=== PATIENT | female | born 1985 | race Caucasian/White ===

== ENCOUNTER 2020-11-12 06:33 | Day surgery (SDC) | payer OTHER ==
[2020-11-12] MEDS ORDERED: KEFZOL 1 GM/50 ML PREMIX** 1 GM/50 ML IVPB IV SCH (06:45)
[2020-11-12] MEDS ORDERED: Lactated Ringers 1,000 ML IV SCH (07:00)
[2020-11-12] MEDS ORDERED: KEFZOL 1 GM/50 ML PREMIX** 1 GM/50 ML IVPB IV ONE (07:17)
[2020-11-12] MEDS ORDERED: Lactated Ringers 1,000 ML IV ONE (07:18)
[2020-11-12] MEDS ORDERED: Xylocaine-Mpf 2% 5 Ml Vial ONE (08:26)
[2020-11-12] MEDS ORDERED: Zofran 4 MG/2 ML VIAL ONE (08:26)
[2020-11-12] MEDS ORDERED: Decadron 4 MG INJ ONE (08:26)
[2020-11-12] MEDS ORDERED: DIPRIVAN 200 MG/20 ML IV ONE (08:26)
[2020-11-12] MEDS ORDERED: Versed 2 MG/2 ML Injection ONE (08:27)
[2020-11-12] MEDS ORDERED: SUBLIMAZE 100 MCG/2 ML ONE ×2 (08:27→09:19)
[2020-11-12 10:29] VITALS: BP 106/63; PULSE 69; O2SAT 99
--- NOTE | 2020-11-12 12:30 | OP ---
SURGERY DATE/TIME: 11/12/2020 0826 PREOPERATIVE DIAGNOSIS: Menorrhagia and post-coital bleeding. POSTOPERATIVE DIAGNOSIS: Menorrhagia and post-coital bleeding. PROCEDURE: Hysteroscopy, D&C with NovaSure ablation. SURGEON: Corby Pabon D.O. THERAPEUTIC ACTIVITIES SERVICES WORKER: Kenrick Izaguirre supply technician. ANESTHESIA: General. ESTIMATED BLOOD LOSS: Minimal. COMPLICATIONS: None. INDICATIONS: The risks, benefits, indications and alternatives of the procedure were reviewed with the patient prior to the procedure. The patient understood the risk of infection, bleeding, bowel injury, bladder injury, ureteral injury, uterine perforation, pelvic infection, thromboembolic disorder associated with this procedure however desires to have this surgery as a possible means to alleviate her current medical condition. DESCRIPTION OF PROCEDURE AND FINDINGS: At this point the patient is taken to the operating room, given general sedation, placed in dorsal lithotomy position, prepped and draped in the usual sterile fashion. A weighted speculum is then placed in the patient's vagina and the anterior lip of the cervix is grasped with a single tooth tenaculum. Endocervical dilators were placed through the endocervical canal as a means to dilate the cervix and the uterus was sounded to approximately 9 cm. From this point a 5 mm hysteroscope was then placed through the endocervical canal where visualization of the endometrial lining appeared to be within normal limits with no gross abnormalities. From this point the hysteroscope was removed and the curette was then placed into the fundus of the uterus and curettage is performed in all quadrants of the uterus retrieving a moderate amount of tissue. From this point the NovaSure was then taken and the length was measured at 6 cm where it was placed into the fundal region retracted approximately 1 cm and was engaged and at this point the width was 3 cm and the NovaSure instrument was turned on for approximately 54 seconds of ablative time. After the ablative time the instrument was disengaged and removed from the uterine cavity without complication. From this point all instruments were removed from the patient's vaginal region. The patient was then taken out of dorsal lithotomy position and was taken out anesthesia and was then taken to the recovery room in stable condition. All instruments and laps were accounted for x2.
== END 2020-11-12 10:44 | disposition home or self-care (01) ==
LOC: SDC 06:33
PROVIDERS: ATTEND Obstetrics & Gynecology
DX: N92.0 Excessive and frequent menstruation with regular cycle (principal); N93.0 Postcoital and contact bleeding
CPT/HCPCS: 84703; J0690; J1100; J2250; J2405; J2704; J3010

== ENCOUNTER 2021-10-03 12:17 | Emergency (ER) | payer BC ==
[2021-10-03 12:42] LABS: Absolute Neutrophil Ct (ANC) 3.14 (1.4-6.9); Basophil (Absolute #) 0.01 (0-0.4); Eosinophil % 0.8 % (0.00-5.0); Eosinophil (Absolute #) 0.04 (0-0.5); Hematocrit 39.3 % (35-47); Hemoglobin 13.3 gm/dl (12.0-16.0); Lymphocyte (Absolute #) 1.63 (1.0-4.6); Lymphocytes % 31.5 % (24.0-44.0); Mean Cell Volume 94.5 fl (78-100); Mean Corpuscular Hgb Concent. 33.8 g/dl (32-36); Mean Platelet Volume 10.3 fl (7.5-11.0); Monocyte (Absolute #) 0.36 (0.0-1.3); Monocytes % 6.9 % (0.0-12.0); Neutrophil % 60.6 % (36.0-66.0); Platelet Count 173 K/mm3 (150-450); Red Blood Count 4.16 M/mm3 (4.1-5.4); Red Cell Distribution Width 11.7 % (11.5-14.0); White Blood Count 5.2 K/mm3 (4.0-10.5)
[2021-10-03 12:43] LABS: Appearance CLEAR (CLEAR); Bilirubin NEGATIVE (NEGATIVE); Blood NEGATIVE Ery/ul (0-5); Epithelial Cells RARE /HPF (FEW); Glucose NEGATIVE (NEGATIVE); Ketones TRACE (NEGATIVE); Leukocyte Esterase NEGATIVE (NEGATIVE); Mucus SLIGHT /HPF (NEGATIVE); Nitrite NEGATIVE (NEGATIVE); Protein,Urine Dip NEGATIVE (Negative); Specific Gravity 1.015 (1.005-1.025); Urobilinogen NEGATIVE mg/dL (0-1)
[2021-10-03 12:55] LABS: INR 1.15 (0.8-3.0); PROTIME 13.6 SECONDS (9.4-12.5)
[2021-10-03 12:59] LABS: ALBUMIN 4.6 g/dL (3.5-5.0); ALKALINE PHOSPHATASE 63 U/L (38-126); AMYLASE 51 U/L (30-110); ANION GAP 13.1 MEQ/L (5-15); BLOOD UREA NITROGEN 13 mg/dL (7-17); CHLORIDE 106 mmol/L (98-107); Carbon Dioxide 24 mmol/L (22-30); Creatinine 1 0.69 mg/dL (0.52-1.04); EST GLOMERULAR FILTRATION RATE > 60.0 ML/MIN; Glucose 89 mg/dL (74-106); LIPASE 58 U/L (23-300); MAGNESIUM 1.8 mg/dL (1.6-2.3); NT PRO BNP 73.2 pg/mL (0-450); Potassium 3.7 mmol/L (3.5-5.1); SGOT/AST 17 U/L (14-36); SGPT/ALT 12 U/L (0-35); SODIUM 139 mmol/L (137-145); Total Protein 7.4 g/dL (6.3-8.2)
[2021-10-03 13:20] LABS: D-DIMER QUANTITATIVE < 215 ng/mL (215-500)
--- NOTE | 2021-10-03 13:57 | XRAY ---
Indication: Pleuritic chest pain. Low level d-dimer. Multiple contiguous axial images obtained through the chest using 100 cc Isovue 370 contrast and PE protocol. Comparison: None Good opacification of the pulmonary arteries including lobar and segmental branches. No pulmonary embolus. Heart is not enlarged. Aorta is normal in course and caliber. No pathologic mediastinal/hilar lymphadenopathy. Lungs inflated and clear. Bony thorax intact. Limited upper abdomen unremarkable. Impression: Normal CT chest PE exam.
[2021-10-03 14:24] VITALS: O2SAT 99
--- NOTE | 2021-10-03 14:47 | ERPHSYRPT ---
- History of Present Illness Time Seen by Provider: 10/03/21 12:25 Exam Limitations: no limitations Patient Subjective Stated Complaint: Chest pain Triage Nursing Assessment: Patient ambulated back to ED and transferred self to bed. Patient A+O X3. Patient's skin pink, warm and dry. Patient states around 45 minutes ago she was at work when she started having chest pain on the left side of chest and underneath her left rib cage when she took a deep breath. Patient currently denies pain or discomfort. 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 The pain was mostly left sided it increases with a deep breath she denies any fever or chills she did have some sweats during the onset of the pain. She also complains of shortness of breath she also reports that she has a history of palpitations but the work-up has been negative including a thyroid screen in several instances. Timing/Duration: today Activities at Onset: other (Work) Quality: stabbing Location: other (Left-sided anterior chest pain) Chest Pain Radiation: no radiation Severity of Pain-Max: moderate Severity of Pain-Current: moderate Modifying Factors: Improves With: nothing, breathing Associated Symptoms: palpitations, weakness Prior Chest Pain/Cardiac Workup: no prior cardiac workup Nitro Today/Relief: no nitro taken today Aspirin Treatment Today: no aspirin today Allergies/Adverse Reactions: doxycycline Adverse Reaction (Severe, Verified 10/03/21 12:17) Headache Home Medications: Amlodipine Besylate 5 mg PO DAILY 10/24/20 [History] Hx Influenza Vaccination/Date Given: No Hx Pneumococcal Vaccination/Date Given: No Immunizations Up to Date: Yes Travel Risk - International Travel Have you traveled outside of the country in past 3 weeks: No - Coronavirus Screening Are you exhibiting any of the following symptoms?: No Close contact with a COVID-19 positive Pt in past 14-21 Days: No - Vaccine Status Have you recieved a Covid-19 vaccination: Yes 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: [employer] - Review of Systems Constitutional: No Fever, No Chills Eyes: No Symptoms Ears, Nose, & Throat: No Symptoms Respiratory: No Cough, No Dyspnea Cardiac: Chest Pain, Palpitations, No Edema, No Syncope Abdominal/Gastrointestinal: No Abdominal Pain, No Nausea, No Vomiting, No Diarrhea Genitourinary Symptoms: No Dysuria Musculoskeletal: No Back Pain, No Neck Pain Skin: No Rash Neurological: No Dizziness, No Focal Weakness, No Sensory Changes Psychological: No Symptoms Endocrine: No Symptoms All Other Systems: Reviewed and Negative - Past Medical History Pertinent Past Medical History: Yes Neurological History: No Pertinent History ENT History: No Pertinent History Cardiac History: Arrhythmia, Hypertension Respiratory History: No Pertinent History Endocrine Medical History: No Pertinent History Musculoskeletal History: No Pertinent History GI Medical History: No Pertinent History History: No Pertinent History Psycho-Social History: Anxiety, Panic Disorder Female Reproductive Disorders: Abnormal Uterine Bleeding Other Medical History: "regularly irregular" heart rhythm, factor VIII deficiency - Past Surgical History Past Surgical History: Yes Neuro Surgical History: No Pertinent History Cardiac: No Pertinent History Respiratory: No Pertinent History Gastrointestinal: No Pertinent History Genitourinary: No Pertinent History Musculoskeletal: No Pertinent History Female Surgical History: No Pertinent History Other Surgical History: tubes in ears 1989 - Social History Smoking Status: Never smoker How long have you smoked: 9 years Exposure to second hand smoke: Yes Drug Use: none Patient Lives Alone: No - Female History Hx Now: No - Nursing Vital Signs Nursing Vital Signs: Initial Vital Signs Temperature 98.2 F 10/03/21 12:19 Pulse Rate 92 H 10/03/21 12:19 Respiratory Rate 18 10/03/21 12:19 Blood Pressure 124/81 10/03/21 12:19 O2 Sat by Pulse Oximetry 100 10/03/21 12:19 Pain Scale Pain Intensity 0 - Physical Exam General Appearance: mild distress, alert Eye Exam: PERRL/EOMI, eyes nml inspection Ears, Nose, Throat Exam: normal ENT inspection, moist mucous membranes Neck Exam: normal inspection, non-tender, supple, full range of motion Respiratory Exam: normal breath sounds, lungs clear, No respiratory distress Cardiovascular Exam: regular rate/rhythm, normal heart sounds Gastrointestinal/Abdomen Exam: soft, No tenderness, No mass Back Exam: normal inspection, No CVA tenderness, No vertebral tenderness Extremity Exam: normal inspection, normal range of motion Neurologic Exam: alert, oriented x 3, cooperative, normal mood/affect, sensation nml, No motor deficits Skin Exam: normal color, warm, dry SpO2: 99 - Course Nursing assessment & vital signs reviewed: Yes EKG Interpreted by Me: RATE (77), Sinus Rhythm, NORMAL AXIS, NORMAL INTERVALS - CT Exams Chest CT Interpretation: Negative (Negative) Ordered Tests: Active Orders 24 hr Category Date Time Status CHEST WITH CONTRAST [CT] Stat Exams 10/03/21 12:24 Completed AMYLASE Stat Lab 10/03/21 12:33 Completed CBC W DIFF Stat Lab 10/03/21 12:33 Completed CMP Stat Lab 10/03/21 12:33 Completed D-DIMER QUANTITATIVE Stat Lab 10/03/21 12:29 Completed HCG,QUALITATIVE URINE Stat Lab 10/03/21 12:29 Completed LIPASE Stat Lab 10/03/21 12:33 Completed Lactic Acid Stat Lab 10/03/21 12:45 Completed MAGNESIUM Stat Lab 10/03/21 12:33 Completed NT PRO BNP Stat Lab 10/03/21 12:33 Completed PROTIME WITH INR Stat Lab 10/03/21 12:29 Completed TROPONIN Q3H Lab 10/03/21 12:33 Completed TROPONIN Q3H Lab 10/03/21 15:30 Ordered TROPONIN Q3H Lab 10/03/21 18:30 Ordered TROPONIN Q3H Lab 10/03/21 21:30 Ordered TROPONIN Q3H Lab 10/04/21 00:30 Ordered TSH [TSH, 3RD Generation] Stat Lab 10/03/21 12:33 Completed UA W/RFX UR CULTURE Stat Lab 10/03/21 12:29 Completed Lab/Rad Data: Laboratory Result Diagrams 10/03/21 12:33 10/03/21 12:33 Laboratory Results 10/03/21 10/03/21 10/03/21 Range/Units 12:45 12:33 12:33 WBC (4.0-10.5) K/mm3 RBC (4.1-5.4) M/mm3 Hgb (12.0-16.0) gm/dl Hct (35-47) % MCV (78-100) fl MCH (26-32) pg MCHC (32-36) g/dl RDW (11.5-14.0) % Plt Count (150-450) K/mm3 MPV (7.5-11.0) fl Gran % (36.0-66.0) % Eos # (Auto) (0-0.5) Absolute Lymphs (auto) (1.0-4.6) Absolute Monos (auto) (0.0-1.3) Lymphocytes % (24.0-44.0) % Monocytes % (0.0-12.0) % Eosinophils % (0.00-5.0) % Basophils % (0.0-0.4) % Absolute Granulocytes (1.4-6.9) Basophils # (0-0.4) PT (9.4-12.5) SECONDS INR (0.8-3.0) D-Dimer (215-500) ng/mL Sodium (137-145) mmol/L Potassium (3.5-5.1) mmol/L Chloride (98-107) mmol/L Carbon Dioxide (22-30) mmol/L Anion Gap (5-15) MEQ/L BUN (7-17) mg/dL Creatinine (0.52-1.04) mg/dL Estimated GFR ML/MIN Glucose (74-106) mg/dL Lactic Acid 0.9 (0.4-2.0) Calcium (8.4-10.2) mg/dL Magnesium (1.6-2.3) mg/dL Total Bilirubin (0.2-1.3) mg/dL AST (14-36) U/L ALT (0-35) U/L Alkaline Phosphatase (38-126) U/L Troponin I < 0.012 (0.000-0.034) ng/mL NT-Pro-B Natriuret Pep (0-450) pg/mL Serum Total Protein (6.3-8.2) g/dL Albumin (3.5-5.0) g/dL Amylase (30-110) U/L Lipase (23-300) U/L TSH 3rd Generation 1.490 (0.47-4.68) mIU/L Urine Color (YELLOW) Urine Appearance (CLEAR) Urine pH (5-6) Ur Specific [place] (1.005-1.025) Urine Protein (Negative) Urine Ketones (NEGATIVE) Urine Blood (0-5) Landen/ul Urine Nitrite (NEGATIVE) Urine Bilirubin (NEGATIVE) Urine Urobilinogen (0-1) mg/dL Ur Leukocyte Esterase (NEGATIVE) Urine RBC (Auto) (0-2) /HPF U Epithel Cells (Auto) (FEW) /HPF Urine Mucus (Auto) (NEGATIVE) /HPF Urine Culture Reflexed (NO) Urine Glucose (NEGATIVE) mg/dL Urine HCG, Qual (Negative) 03/04/22 03/04/22 03/04/22 Range/Units 12:33 12:33 12:29 WBC 5.2 (4.0-10.5) K/mm3 RBC 4.16 (4.1-5.4) M/mm3 Hgb 13.3 (12.0-16.0) gm/dl Hct 39.3 (35-47) % MCV 94.5 (78-100) fl MCH 32.0 (26-32) pg MCHC 33.8 (32-36) g/dl RDW 11.7 (11.5-14.0) % Plt Count 173 (150-450) K/mm3 MPV 10.3 (7.5-11.0) fl Gran % 60.6 (36.0-66.0) % Eos # (Auto) 0.04 (0-0.5) Absolute Lymphs (auto) 1.63 (1.0-4.6) Absolute Monos (auto) 0.36 (0.0-1.3) Lymphocytes % 31.5 (24.0-44.0) % Monocytes % 6.9 (0.0-12.0) % Eosinophils % 0.8 (0.00-5.0) % Basophils % 0.2 (0.0-0.4) % Absolute Granulocytes 3.14 (1.4-6.9) Basophils # 0.01 (0-0.4) PT (9.4-12.5) SECONDS INR (0.8-3.0) D-Dimer (215-500) ng/mL Sodium 139 (137-145) mmol/L Potassium 3.7 (3.5-5.1) mmol/L Chloride 106 (98-107) mmol/L Carbon Dioxide 24 (22-30) mmol/L Anion Gap 13.1 (5-15) MEQ/L BUN 13 (7-17) mg/dL Creatinine 0.69 (0.52-1.04) mg/dL Estimated GFR > 60.0 ML/MIN Glucose 89 (74-106) mg/dL Lactic Acid (0.4-2.0) Calcium 9.0 (8.4-10.2) mg/dL Magnesium 1.8 (1.6-2.3) mg/dL Total Bilirubin 0.50 (0.2-1.3) mg/dL AST 17 (14-36) U/L ALT 12 (0-35) U/L Alkaline Phosphatase 63 (38-126) U/L Troponin I (0.000-0.034) ng/mL NT-Pro-B Natriuret Pep 73.2 (0-450) pg/mL Serum Total Protein 7.4 (6.3-8.2) g/dL Albumin 4.6 (3.5-5.0) g/dL Amylase 51 (30-110) U/L Lipase 58 (23-300) U/L TSH 3rd Generation (0.47-4.68) mIU/L Urine Color (YELLOW) Urine Appearance (CLEAR) Urine pH (5-6) Ur Specific [place] (1.005-1.025) Urine Protein (Negative) Urine Ketones (NEGATIVE) Urine Blood (0-5) Landen/ul Urine Nitrite (NEGATIVE) Urine Bilirubin (NEGATIVE) Urine Urobilinogen (0-1) mg/dL Ur Leukocyte Esterase (NEGATIVE) Urine RBC (Auto) (0-2) /HPF U Epithel Cells (Auto) (FEW) /HPF Urine Mucus (Auto) (NEGATIVE) /HPF Urine Culture Reflexed (NO) Urine Glucose (NEGATIVE) mg/dL Urine HCG, Qual NEGATIVE (Negative) 10/03/21 10/03/21 Range/Units 12:29 12:29 WBC (4.0-10.5) K/mm3 RBC (4.1-5.4) M/mm3 Hgb (12.0-16.0) gm/dl Hct (35-47) % MCV (78-100) fl MCH (26-32) pg MCHC (32-36) g/dl RDW (11.5-14.0) % Plt Count (150-450) K/mm3 MPV (7.5-11.0) fl Gran % (36.0-66.0) % Eos # (Auto) (0-0.5) Absolute Lymphs (auto) (1.0-4.6) Absolute Monos (auto) (0.0-1.3) Lymphocytes % (24.0-44.0) % Monocytes % (0.0-12.0) % Eosinophils % (0.00-5.0) % Basophils % (0.0-0.4) % Absolute Granulocytes (1.4-6.9) Basophils # (0-0.4) PT 13.6 H (9.4-12.5) SECONDS INR 1.15 (0.8-3.0) D-Dimer < 215 L (215-500) ng/mL Sodium (137-145) mmol/L Potassium (3.5-5.1) mmol/L Chloride (98-107) mmol/L Carbon Dioxide (22-30) mmol/L Anion Gap (5-15) MEQ/L BUN (7-17) mg/dL Creatinine (0.52-1.04) mg/dL Estimated GFR ML/MIN Glucose (74-106) mg/dL Lactic Acid (0.4-2.0) Calcium (8.4-10.2) mg/dL Magnesium (1.6-2.3) mg/dL Total Bilirubin (0.2-1.3) mg/dL AST (14-36) U/L ALT (0-35) U/L Alkaline Phosphatase (38-126) U/L Troponin I (0.000-0.034) ng/mL NT-Pro-B Natriuret Pep (0-450) pg/mL Serum Total Protein (6.3-8.2) g/dL Albumin (3.5-5.0) g/dL Amylase (30-110) U/L Lipase (23-300) U/L TSH 3rd Generation (0.47-4.68) mIU/L Urine Color YELLOW (YELLOW) Urine Appearance CLEAR (CLEAR) Urine pH 7.0 (5-6) Ur Specific [place] 1.015 (1.005-1.025) Urine Protein NEGATIVE (Negative) Urine Ketones TRACE (NEGATIVE) Urine Blood NEGATIVE (0-5) Landen/ul Urine Nitrite NEGATIVE (NEGATIVE) Urine Bilirubin NEGATIVE (NEGATIVE) Urine Urobilinogen NEGATIVE (0-1) mg/dL Ur Leukocyte Esterase NEGATIVE (NEGATIVE) Urine RBC (Auto) 3-5 (0-2) /HPF U Epithel Cells (Auto) RARE (FEW) /HPF Urine Mucus (Auto) SLIGHT (NEGATIVE) /HPF Urine Culture Reflexed NO (NO) Urine Glucose NEGATIVE (NEGATIVE) mg/dL Urine HCG, Qual (Negative) - Progress Progress: improved Air Movement: good Blood Culture(s) Obtained: No Antibiotics given: No - Departure Departure Disposition: Home Clinical Impression: Pleuritic chest pain Condition: Stable Critical Care Time: No Referrals: SANYA CARRERO NP [Primary Care Provider] - Follow up/PCP as directed Instructions: Chest Pain (DC) Prescriptions: Diclofenac Sodium 50 mg [Voltaren 50 mg] 50 mg PO Q8H #15 cap
[2021-10-03 15:28] VITALS: BP 105/74; PULSE 83
== END 2021-10-03 15:35 | disposition home or self-care (01) ==
LOC: ED 12:17
DX: R09.1 Pleurisy (principal); R06.02 Shortness of breath; I10 Essential (primary) hypertension; D66 Hereditary factor VIII deficiency
CPT/HCPCS: 36000; 36415; 71260; 80053; 81001; 82150; 83605; 83690; 83735; 83880; 84443; 84484; 84703; 85025; 85379; 85610; 93005; 99284

== ENCOUNTER 2022-05-30 14:14 | Emergency (ER) | payer BC, SELFPAY ==
--- NOTE | 2022-05-30 14:19 | ERPHSYRPT ---
- History of Present Illness Time Seen by Provider: 05/30/22 14:19 Source: patient Exam Limitations: no limitations Physician History: This is a right-handed 36-year-old white female who presents with a small superficial laceration dorsal aspect left hand between the first and second digits. 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 She does not know when her last tetanus shot was. Patient has full function of her left hand. She is neurologically intact. There is no active bleeding at the site. There is tenderness. Timing/Duration: today Quality: painful Severity: mild (To moderate) Location: hands (Dorsal aspect left hand between the first and second digits) Allergies/Adverse Reactions: doxycycline Adverse Reaction (Severe, Verified 10/03/21 12:17) Headache Home Medications: Amlodipine Besylate 5 mg PO DAILY 10/24/20 [History] Hx Influenza Vaccination/Date Given: No Hx Pneumococcal Vaccination/Date Given: No Travel Risk - International Travel Have you traveled outside of the country in past 3 weeks: No - Coronavirus Screening Are you exhibiting any of the following symptoms?: No Close contact with a COVID-19 positive Pt in past 14-21 Days: No - Vaccine Status Have you recieved a Covid-19 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: Yes 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[employer] - Review of Systems Constitutional: No Symptoms Eyes: No Symptoms Ears, Nose, & Throat: No Symptoms Respiratory: No Symptoms Cardiac: No Symptoms Abdominal/Gastrointestinal: No Symptoms Genitourinary Symptoms: No Symptoms Musculoskeletal: No Symptoms Skin: Other (4 mm superficial laceration skin dorsal aspect left hand between the first and second digits) Neurological: No Symptoms Psychological: No Symptoms Endocrine: No Symptoms Hematologic/Lymphatic: No Symptoms Immunological/Allergic: No Symptoms All Other Systems: Reviewed and Negative - Past Medical History Pertinent Past Medical History: Yes Neurological History: No Pertinent History ENT History: No Pertinent History Cardiac History: Arrhythmia, Hypertension Respiratory History: No Pertinent History Endocrine Medical History: No Pertinent History Musculoskeletal History: No Pertinent History GI Medical History: No Pertinent History History: No Pertinent History Psycho-Social History: Anxiety, Panic Disorder Female Reproductive Disorders: Abnormal Uterine Bleeding Other Medical History: "regularly irregular" heart rhythm, factor VIII deficiency - Past Surgical History Past Surgical History: Yes Neuro Surgical History: No Pertinent History Cardiac: No Pertinent History Respiratory: No Pertinent History Gastrointestinal: No Pertinent History Genitourinary: No Pertinent History Musculoskeletal: No Pertinent History Female Surgical History: No Pertinent History Other Surgical History: tubes in ears 1989 - Social History Smoking Status: Never smoker How long have you smoked: 9 years Exposure to second hand smoke: Yes Drug Use: none Patient Lives Alone: No - Nursing Vital Signs Nursing Vital Signs: Initial Vital Signs Temperature 97.0 F 05/30/22 15:10 Pulse Rate 74 05/30/22 15:10 Respiratory Rate 18 05/30/22 15:10 Blood Pressure 107/83 05/30/22 15:10 O2 Sat by Pulse Oximetry 98 05/30/22 15:10 Pain Scale Pain Intensity 8 - Physical Exam General Appearance: no apparent distress, alert, anxiety Eye Exam: PERRL/EOMI, eyes nml inspection Ears, Nose, Throat Exam: normal ENT inspection, moist mucous membranes Neck Exam: normal inspection, non-tender, supple, full range of motion Respiratory Exam: airway intact, No chest tenderness, No respiratory distress Gastrointestinal/Abdomen Exam: No tenderness Pelvic Exam: not done Rectal Exam: not done Back Exam: normal inspection, normal range of motion, No CVA tenderness, No vertebral tenderness Extremity Exam: normal range of motion, pelvis stable, lacerations (4 mm superficial laceration skin dorsal aspect left hand between the first and second digits. No active bleeding. Neurovascularly intact. 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 Evaluation was made in a bloodless field to the base) Irrigated: Yes Hibiclens Prep: Yes Wound Repaired With: Steri-strips, Dermabond (After prepping the site with Hibiclens and after prepping the site with benzoin solution. Wound was approximated with Dermabond and half-inch Steri-Strips) Progress: 05/30/22 15:27 Patient told procedure well there are no complications. Bandage was placed overlying the Steri-Strip repair site. Ordered Tests: Medication Summary Discontinued Medications Generic Name Dose Route Start Last Admin Trade Name Tara PRN Reason Stop Dose Admin Diphtheria/Tetanus/Acell Pertussis 0.5 ml 05/30/22 15:07 05/30/22 15:11 Tdap --Diph,Pertuss(Acell),Tet Vac/Pf 0.5 Ml Vial IM 05/30/22 15:08 0.5 ml .ONCE ONE Administration Diphtheria/Tetanus/Acell Pertussis Confirm 05/30/22 15:09 Tdap --Diph,Pertuss(Acell),Tet Vac/Pf 0.5 Ml Vial Administered 05/30/22 15:10 Dose 0.5 ml IM .STK-MED ONE - Progress Progress: improved Counseled pt/family regarding: diagnosis - Departure Departure Disposition: Home Clinical Impression: Laceration of left hand Condition: Stable Critical Care Time: No Referrals: SANYA CARRERO NP [Primary Care Provider] - Follow up/PCP as directed Additional Instructions: Keep top dressing in place for 24 hours. After 24 hours, remove the top dressing and leave the Steri-Strips in place till they fall off on their own. Wash the site daily after 24 hours. Blot dry use a hairdryer to dry the site. Trim the Steri-Strips as they curl up. Use Tylenol and ibuprofen for pain control.
[2022-05-30] MEDS ORDERED: Adacel Vial IM ONE ×2 (15:07→15:09)
[2022-05-30 15:12] VITALS: BP 107/83; PULSE 74; O2SAT 98
== END 2022-05-30 15:39 | disposition home or self-care (01) ==
LOC: ED 14:14
DX: S61.412A Laceration without foreign body of left hand, initial encounter (principal); W26.0XXA Contact with knife, initial encounter; Y93.D9 Activity, other involving arts and handcrafts; I10 Essential (primary) hypertension; Z79.899 Other long term (current) drug therapy
CPT/HCPCS: 12001; 90471; 90715; 99282